=== PATIENT | male | born 1955 | race Caucasian/White ===

== ENCOUNTER 2025-05-02 12:59 | Outpatient (REF) | payer OTHER, SELFPAY ==
--- OUTSIDE RECORDS SUMMARY | 2025-05-02 14:24 | XMS_ITS | Data Portability ---
Demographics Address [address] [place] [address] Home Phone Mobile Phone Work Phone Email Address Preferred Language en Marital Status Never Yazdanism Affiliation Unknown Race White Ethnic Group Not or Lati no Author Organization [place] - [facility], Allergy Address [address] [address] Care Team Providers Care Gis Manager Name Role Phone LINDA BENAVIDES Primary Care Provider Assessment Encounter Date Assessment Date Assessment LastModified by Organization Details LastModified Time 04/17/2025 04/17/2025 Prior history of sinus surgery for invasive fungal sinusitis. Previously noted to have purulent discharge and some bulging from the right lateral wall treated with antibiotics. Denies any further colored nasal discharge. He has been doing once daily budesonide irrigations with the NeilMed kit. He also took oral antibiotics. CT scan showed bilateral maxillary sinus opacification. 30 degree endoscopy was performed with debridement bilaterally. The left maxillary ostium was opened and purulent drainage and mucosal edema was noted. Culture was taken and the sinus was cleared with a suction. On the right side the right maxillary ostium was narrowed and it was dilated with a curved suction and turbid secretions and polypoid mucosa was removed with a suction. I have suggested he use the budesonide irrigations twice daily with the powered Navage. We will try to add antibiotics topically based on the culture. [email or web address] Not available 04/17/2025 12:03:11 Plan of Treatment Reminders Order Date Submit Date Provider Last Modified By Organization Details Last Modified Time Details Appointments Establish ed 30 2024 11:00A M TYRELL WILD MD Not available Not available Not available Lab culture, abscess 2024 025 [place] [facility] (Centralized Electronic Ordering - All Locations), Patient Can Go To The Location Of Their Choice, [id number] 04/21/2025 16:17:06 Referral None recorded. Procedures None recorded. Surgeries None recorded. Imaging CT, sinuses, w/o contrast 2024 025 [place] [facility], [address] [place] [address], [phone], 04/17/2025 12:42:18 CT, maxillofa cial, w/o contrast 2024 025 [email or web address] [facility], [address] [place] [address], [id number], 01/26/2025 09:18:46 Medication Orders doxycycli ne hyclate 100 mg tablet 2024 025 [place] [facility] [id number], [address] [place], [address], 04/17/2025 11:36:54 Patient TargetsNo targets recorded. Patient InstructionsNo instructions recorded. Reason for Referral None Reported. Results Created Date Observation Date Name Description Value Unit Range Abnormal Flag Note LastModifiedBy Organization Detail LastModifiedTime 04/17/2004/20/2025 ANAER OBIC AND AEROB IC CULTU RE aerobic culture Final report abnormal Not Available [facility] ([facility]) [address] [place], [address], 04/21/2025 16:17:06 04/17/20 25 04/20/2025 ANAER OBIC AND AEROB IC CULTU RE result 1 COMMEN T abnormal Steno troph omona s malto phili a Light growt h Levof loxac in and Trime thopr im-Cullen lfame thoxa zole shoul d not be used alone for antim icrob ial thera py (CLSI ). Not Available [facility] ([facility]) [address] [facility], [place], [address], 04/21/2025 16:17:06 04/17/20 25 04/20/2025 ANAER OBIC AND AEROB IC CULTU RE result 2 Mixed site jersey. Light growt h Not Available [facility] ([facility]) [address] [facility], [place], [address], 04/21/2025 16:17:06 04/17/20 25 04/20/2025 ANAER OBIC AND AEROB IC CULTU RE antimicrobia l susceptibili ty Commen t S = Susce ptibl e; I = Inter media te; R = Resis tant P = Posit brent; N = Negat brent MICS are expre ssed in micro grams per mL Antib iotic RSLT# 1 RSLT# 2 RSLT# 3 RSLT# 4 Levof loxac in S [place] yclin e S Trime thopr im/Cullen lfa S Not Available [facility] ([facility]) [address] [facility], [place], [address], 04/21/2025 16:17:06 04/17/20 25 04/21/2025 ANAER OBIC AND AEROB IC CULTU RE anaerobic culture Final report Not Available [facility] ([facility]) [address] [facility], [place], [address], 04/21/2025 16:17:06 04/17/20 25 04/21/2025 ANAER OBIC AND AEROB IC CULTU RE result 1 COMMEN T No anaer obic growt h in 72 hours . Not Available [facility] ([facility]) [address] [facility], [place], [address], 04/21/2025 16:17:06 12/19/19 25 12/19/2024 CT, face, w/wo contr ast No observ ation record ed. [email or web address] Not Available 12/01 16:40:41 04/17/20 CT, sinus es, w/o contr ast No observ ation record ed. [email or web address] [facility] [address], [place], [address], 04/17/2025 11:16:08 Result Notes None recorded. 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 Acute myeloblas tic leukemia, in remission ; Note: Changed from C92.00 to C92.01 ( 12:33 PM) , Date Diagnosed : 07/13/2018 9:56 AM (C92.00) Not Available [facility] 4 02:38:10 Follow-up visit Active 2017 Encounter for follow-up examinati on after completed treatment for condition s other than malignant neoplasm; Note: Date Diagnosed : 8 9:24 AM (Z09) Not Available [facility] 4 02:38:02 Chronic frontal sinusitis 49776393 Active 2017 Chronic frontal sinusitis ; Note: Date Diagnosed : 09/06/2018 12:47 PM (J32.1) Not Available [facility] 4 02:38:10 Impacted cerumen of bilateral ears 95898816592 52540 Active 2021 Impacted cerumen, bilateral ; Note: Date Diagnosed : 07/16/2022 2:11 PM (H61.23) Not Available [facility] 4 02:38:06 Chronic rhinitis 39498355 Active 2020 Chronic rhinitis; Note: Date Diagnosed : 01/23/2021 12:34 PM (J31.0) Not Available [facility] 4 02:38:00 Chronic maxillary sinusitis 05383126 Active 2017 Chronic maxillary sinusitis ; Note: Date Diagnosed : 09/06/2018 12:47 PM (J32.0) Not Available [facility] 4 02:38:04 Acquired deformity of nose 53234427 Active 2017 Acquired deformity of nose; Note: Date Diagnosed : 09/06/2018 10:01 AM (M95.0) Not Available [facility] 4 02:38:04 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, unspecifi ed; Note: Date Diagnosed : 07/13/2018 9:56 AM (B46.5) Not Available [facility] 4 02:38:06 Chronic sinusitis 82267982 Active 2024 TYRELL REESE MD [address] [facility] [employer],[address] [place], [address] , [facility] - [facility] 5 16:06:56 Chronic bilateral maxillary sinusitis 06014219296 197313 Active 2024 TYRELL REESE MD [address] [facility] [employer],[address], [place], [address] , [facility] [place] 5 11:16:06 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 septum 30905399 Active 2024 TYRELL REESE MD [address] [facility] [employer],[address], [place], [address] , [facility] - [facility] 12:04:53 Polyp of nasal cavity 714607438 Active 2024 TYRELL REESE MD 100 [facility],[address] [facility], [place], [address] , [facility] - [facility] 16:47:15 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 Procedures Surgical History Date Name Laterality Status Provider Name and Address Organization Details Recorded Time 5 JMSNasal/Sinus Endoscopy-DEBR IDEMENT completed TYRELL BUTT MD [address] [facility] [employer],[address] [facility], [place], [address], [facility] - [facility] [place] 04/17/2025 12:04:40 5 JMSNasal/Sinus Endoscopy completed TYRELL BUTT MD [address], [place], [address], [facility] - [facility] 12/19/2024 16:11:02 Imaging Results None recorded. Procedure Notes None recorded. Medical Equipment None Reported. Allergies No known drug allergies Medications Name Sig Start Date Stop Date Status Note LastModified by Organization Details LastModified Time carvedilo l 25 mg tablet TAKE 1 TABLET BY MOUTH TWICE A DAY WITH FOOD FOR 90 DAYS active Not Available Not Available No t Available carvedilo l 12.5 mg tablet TAKE 1 TABLET BY MOUTH TWICE A DAY WITH MEALS. (TOTAL DAILY DOSE IS 37.5MG) active Not Available Not Available No t Available clonidine 0.1 mg/24 hr weekly transderm al patch 01/04 completed Medicati on ID: [id number] D uration Value: 28 Brand Name: clonidin e Send Method: E-Prescr ibed Sub s Allowed: subs OK Medic ationGen ericName : clonidin e Not Available Not Available Not Available trazodone 50 mg tablet TAKE 1/2 TABLET BY MOUTH AT BEDTIME NEEDED active Not Available Not Available No t Available lorazepam 0.5 mg tablet TAKE 1 TABLET BY MOUTH EVERY 6 HOURS NEEDED FOR ANXIETY. active Not Available Not Available No t Available budesonid e 0.5 mg/2 mL suspensio n for nebulizat ion Mix 1 vial in 8 ounces of distille d water with a buffered saline packet. Irrigate nose twice daily. Use half a bottle on each side 2024 active Not Available Not Available Not Avai lable azelastin e 137 mcg (0.1 %) nasal spray 2 SPRAYS BY NASAL ROUTE 2 (TWO) TIMES A DAY. USE IN EACH NOSTRIL DIRECTED 04/17 completed Not Available Not Available Not Available lisinopri l 40 mg tablet 04/17 completed Medicati on ID: [id number] D uration Value: 30 Brand Name: lisinopr il Send Method: E-Prescr ibed Sub s Allowed: subs OK Medic ationGen ericName : lisinopr il Not Available Not Available Not Available doxycycli ne hyclate 100 mg tablet TAKE 1 TABLET BY MOUTH TWICE A DAY FOR 20 DAYS 04/17 completed Not Available Not Available Not Available oxycodone 5 mg tablet 01/04 completed Medicati on ID: [id number] D uration Value: 5 Brand Name: oxycodon e Send Method: E-Prescr ibed Sub s Allowed: subs OK Medic ationGen ericName : oxycodon e Not Available Not Available Not Available levocetir izine 5 mg tablet 04/17 completed Medicati on ID: [id number] B rand Name: levoceti rizine S end Method: E-Prescr ibed Sub s Allowed: subs OK Medic ationGen ericName : levoceti rizine Not Available Not Available Not Available Noxafil 100 mg tablet,de layed release 01/04 completed Medicati on ID: [id number] D uration Value: 30 Brand Name: Noxafil Send Method: E-Prescr ibed Sub s Allowed: subs OK Speci al Instruct ion: TAKE 3 TABLETS BY MOUTH ONCE DAILY Me dication GenericN jessica: Noxafil Not Available Not Available Not Available Vitals Date Recorded Body height Body mass index (BMI) Body weight Provider Name and Address Organization Details Last Updated DateTime 04/17/2025 177.8 cm 18.1 kg/m2 67843.64 g Marianna Kerr [place] - [facility] 04/17/2025 11:36:38 Social History None recorded. Functional Status None recorded. Mental Status None recorded. Family History Nothing Reported. Medical History No medical history recorded. Past Encounters Encounter ID Performer Location Encounter Start Date Encounter Closed Date Diagnosis/Indication Diagnosis SNOMED-CT Code Diagnosis ICD10 Code Diagnosis Note [id number] TYRELL REESE MD [facility] [address] [address] 12/19/2024 15:22:18 12/19/2024 16:18:04 Acute myeloid leukemia in remission 25646171 C92.01 Chronic sinusitis 465403 00 J32.9 Patient with prior history of invasive fungal sinusitis with prior sinus surgery including resection of septum. He has been relatively asymptomat ic but on his evaluation in July was noted to have chronic sinusitis with complete obstructio n of both maxillary sinuses. Surgical interventi on was recommende d but he declined. At present he really has no symptoms except for a little postnasal drip. He does saline irrigation s daily. Endoscopic examinatio n shows postsurgic al changes with subtotal septal perforatio n evidence of middle turbinate resections and ethmoid cavities. Sphenoids are clear. There is bulging of the right lateral wall with purulent discharge and purulent discharge coming from the left maxillary sinus. At this point we reviewed the images from July with his niece Courtney and discussed that prior to surgical interventi on we can try some antibiotic s. He should take probiotic with the antibiotic to avoid GI upset. I would agree that if the infection is not clear we should do a drainage procedure and lavage as he is at risk for future complicati ons and continued infection [id number] TYRELL REESE MD [facility] [address] [place] [address] 04/17/2025 10:52:10 04/17/2025 12:10:03 Chronic bilateral maxillary sinusitis [id number] 3032803 J32.0 Perforatio n of nasal septum 31068236 J34.89 Health Concerns Section Related Observation LastModified by Organization Detai ls LastModified Time None Recorded Concern Status LastModified by Organization Details LastModified Time None Recorded Advance Directives Directive None Recorded Payers Insurance Date Sequence Insurance Name Policy Number Policy Villareal Covered Member ID Villareal Member ID Guarantor Name 04/17/2025 1 [facility] [id number] Indio Albert [id number] Indio Albert 04/17/2025 1 [facility] [id number] Indio Albert [id number] Indio Albert Notes Date Note Type Note Provider Name and Address Organization Details Recorded Time 12/19/2024 text/html Patient with genet or history of invasive fungal sinusitis with prior sinus surgery including resection of septum. He has been relatively asymptomatic but on his evaluation in July was noted to have chronic sinusitis with complete obstruction of both maxillary sinuses. Surgical intervention was recommended but he declined. At present he really has no symptoms except for a little postnasal drip. He does saline irrigations daily TYRELL BUTT MD [address] [place] [address], [place], [address], [facility] - [facility] 12/19/2024 16:11:53 04/17/2025 text/html Prior history of sinus surgery for invasive fungal sinusitis. Previously noted to have purulent discharge and some bulging from the right lateral wall treated with antibiotics. Denies any further colored nasal discharge. He has been doing once daily budesonide irrigations with the NeilMed kit. He also took oral antibiotics. TYRELL BUTT MD [address] [place] [address], [place], [address], [facility] - [facility] 04/17/2025 12:07:03
== END 2025-05-02 13:00 | disposition home or self-care (01) ==
LOC: HO.BBR 12:59
PROVIDERS: PCP Hospitalist; Visit Provider Physician Assistant Medical
DX: E83.111 Hemochromatosis due to repeated red blood cell transfusions (principal); C92.00 Acute myeloblastic leukemia, not having achieved remission
CPT/HCPCS: 85018